=== PATIENT | male | born 1945 | race Caucasian/White ===

== ENCOUNTER 2016-08-07 05:48 | Emergency (ER) | payer MEDICARE ==
[2016-08-07 06:36] LABS: ABSOLUTE NEUTROPHIL COUNT 8.5 K/mm3 (1.8-7.7); BASO % 0.3 % (0.2-1.0); EOS # 0.1 (0.0-0.5); EOS % 0.8 % (0.9-2.9); HEMATOCRIT 44.1 % (32.0-52.0); HEMOGLOBIN 15.3 gm/l (14.0-18.0); IMM NEUT # 0.1 K/mm3 (0-0.2); IMM NEUT% 0.5 % (0-1); LYMPH # 0.5 (1.0-4.8); MEAN CELL VOLUME 88.7 fl (80.0-94.0); MEAN CORPUSCULAR HEMOGLOBIN 30.8 pg (27.0-31.0); MEAN CORPUSCULAR HGB CONC 34.7 g/dl (33.0-37.0); MEAN PLATELET VOLUME 9.5 fl (7.4-10.4); MONO # 0.5 (0.0-0.8); MONO % 4.8 % (4-12); NEUT % 88.6 % (43-75); PLATELET COUNT 98 K/mm3 (130-400); RED CELL DISTRIBUTION WIDTH 12.6 % (11.5-14.5)
[2016-08-07 06:47] LABS: ALB/GLOB RATIO 1.8 (>1.0); ALBUMIN 4.2 gm/dL (3.5-5.7); CALCIUM 8.9 mg/dL (8.6-10.3)
[2016-08-07 06:56] LABS: SPECIFIC GRAVITY 1.015 (1.001-1.030); URINE BILIRUBIN NEGATIVE (NEGATIVE); URINE BLOOD 4+ (NEGATIVE); URINE GLUCOSE (UA) 1+ (NEGATIVE); URINE LEUKOCYTE ESTERASE NEGATIVE (NEGATIVE); URINE NITRITE NEGATIVE (NEGATIVE); URINE PROTEIN TRACE (NEGATIVE); URINE UROBILINOGEN NORMAL (0-1 mg/dl)
[2016-08-07 06:57] LABS: URINE APPEARANCE HAZY; URINE COLOR YELLOW
[2016-08-07 07:03] LABS: URINE BACTERIA RARE; URINE EPITHELIAL CELLS 0-1 /hpf; URINE RBC 30-40 /hpf; URINE WBC 0-1 /hpf
--- NOTE | 2016-08-07 07:48 | CT ---
ABD/PELVIS W/O CON: 08/07/2016 6:34 AM INDICATION: Right flank pain. COMPARISON: None. TECHNIQUE: Contiguous 3 mm transaxial images from a [employer] [address] scanner were obtained from the lung bases through the pubic symphysis without oral or intravenous contrast. Multiplanar images were created at the CT scanner. CT DI: 13.3 DLP: 731.2 FINDINGS: Lung base: Dependent and atelectatic changes noted the lung bases. There is no pericardial effusion. This examination is limited for the evaluation of solid organs and vascular structures due to the lack of intravenous contrast which is standard for urinary calculus assessment CT. Liver: Normal. Gallbladder: Normal Spleen: Enlarged measuring 16.5 cm on axial image 32.. Pancreas: Normal. Adrenal Glands: Normal. Right kidney & ureter: - Calculi - No . - Ureter Calculi - No. - Obstruction / hydronephrosis - Mild Left kidney & ureter: - Calculi - 2 to 3 mm nonobstructive calculus is noted at the left lower pole on image 63. . - Ureter Calculi- No . - Obstruction / hydronephrosis - No The unopacified stomach and bowel is within normal limits. Appendix is normal. No lymphadenopathy is seen in the abdomen or pelvis No free fluid in the abdomen or pelvis. Prostate abuts and deforms the bladder base. Tiny fat-containing umbilical hernia. Mild atherosclerotic disease of the abdominal aorta and branch vessels. Urinary bladder: -Bladder Calculi- 3 to 4 mm bladder calculus is identified just lateral to the ureterovesicular junction of the right ureter . - Bladder is distended adequately. - Wall is thin. Bone windows- No lytic or sclerotic lesions. Mild multilevel degenerative changes are present. IMPRESSION: 1. Bladder calculus is identified with mild hydroureteronephrosis on the right likely relating to recently passed stone. Nonobstructive calculus is seen on the left. 2. Non-contrast evaluation of the abdomen and pelvis is otherwise notable for splenomegaly and other incidental findings as above. Preliminary report was provided by [facility] at approximately 0700 hours on 08/07/2016.
== END 2016-08-07 07:44 | disposition home or self-care (01) ==
LOC: ED 05:48
DX: N20.2 Calculus of kidney with calculus of ureter (principal); I50.9 Heart failure, unspecified; E11.9 Type 2 diabetes mellitus without complications; Z79.4 Long term (current) use of insulin; C95.91 Leukemia, unspecified, in remission